=== PATIENT | male | born 1930 | race Caucasian/White ===

== ENCOUNTER 2017-09-30 13:37 | Day surgery (SDC) | payer MEDICARE, OTHER ==
[~2017-09-30 13:37] MED LIST: Ketamine 500 mg/10 ML MDV ONE; Lactated Ringers 1,000 ML IV SCH; Midazolam 1 MG/ML 2 ML SDV ONE; Propofol 200 MG/20 ML SDV ONE; Sodium Chloride 0.9% 10 ML Syringe FLUSH PRN; fentaNYL 100 MCG/2 ML SDV ONE
[2017-09-30] MEDS ORDERED: Midazolam 1 MG/ML 2 ML SDV ONE ×2 (14:42→14:44)
[2017-09-30] MEDS ORDERED: Propofol 200 MG/20 ML SDV ONE ×2 (14:42→14:44)
--- NOTE | 2017-09-30 14:46 | PCM.PN ---
- General Info Date of Service: 09/30/17 - Review of Systems Systems Review Comment:: 86-year-old male referred by Shea Urban for colonoscopy. He has a history of rectal bleeding. He is medically stable to proceed today with no significant recent changes in his health status. His recent history and physical is reviewed. I have discussed the proposed colonoscopy with the patient. Risks such as but not limited to bleeding and GI injury reviewed. He appears to understand and agrees to proceed. - Patient Data Vitals - Most Recent: Last Vital Signs Temp 98.3 F 09/30/17 14:09 Pulse 51 L 09/30/17 14:09 Resp 20 09/30/17 14:09 BP 132/76 09/30/17 14:09 Pulse Ox 95 09/30/17 14:09 Weight - Most Recent: 63.503 kg Med Orders - Current: Current Medications Lactated Ringer's (Ringers, Lactated) 1,000 mls @ 125 mls/hr IV ASDIRECTED INGE Last Admin: 09/30/17 14:20 Dose: 125 mls/hr Sodium Chloride (Saline Flush) 10 ml FLUSH ASDIRECTED PRN PRN Reason: Keep Vein Open Discontinued Medications Fentanyl (Sublimaze) Confirm Administered Dose 100 mcg .ROUTE .STK-MED ONE Stop: 09/30/17 07:39 Ketamine HCl (Ketalar) Confirm Administered Dose 500 mg .ROUTE .STK-MED ONE Stop: 09/30/17 07:39 Midazolam HCl (Versed 1 Mg/Ml) Confirm Administered Dose 2 mg .ROUTE .STK-MED ONE Stop: 09/30/17 07:39 Midazolam HCl (Versed 1 Mg/Ml) Confirm Administered Dose 2 mg .ROUTE .STK-MED ONE Stop: 09/30/17 14:43 Propofol (Diprivan 20 Ml) Confirm Administered Dose 200 mg .ROUTE .STK-MED ONE Stop: 09/30/17 07:40 Propofol (Diprivan 20 Ml) Confirm Administered Dose 400 mg .ROUTE .STK-MED ONE Stop: 09/30/17 14:43 - Problem List Review Problem List Initiated/Reviewed/Updated: Yes - Assessment Assessment:: Hematochezia - Plan Plan:: Colonoscopy
--- NOTE | 2017-09-30 15:24 | PCM.OPNOTE ---
- General Post-Op/Procedure Note Date of Surgery/Procedure: 09/30/17 Operative Procedure(s): Colonoscopy with polyp ablation. Anoscopy Findings: Small cecal polyp Internal hemorrhoids Anal fissure in the posterior midline Pre Op Diagnosis: Hematochezia Post-Op Diagnosis: Colon polyp. Hemorrhoids. Anal fissure Anesthesia Technique: MAC Primary Surgeon: Sixto Anthony Pathology: none Output, Urine Amount: 0 EBL in mLs: 0 Complications: None Condition: Good
[2017-09-30 16:01] VITALS: BP 133/82
--- NOTE | 2017-09-30 16:31 | OR ---
Date of Procedure: 09/30/2017 PREOPERATIVE DIAGNOSIS: Hematochezia. POSTOPERATIVE DIAGNOSES: Colon polyp, internal hemorrhoids, anal fissure. OPERATIONS PERFORMED: Colonoscopy with polyp ablation and anoscopy. INDICATIONS FOR SURGERY: This 86-year-old male has been having symptoms of hematochezia. He is referred for a colonoscopy. FINDINGS: In the patient's colon, single polyp was noted in the cecum. This was 3 to 4 mm in size, sessile in configuration, and benign in appearance. The patient's rectum had multiple [id number] sized internal hemorrhoids without active bleeding. Also, in the rectum, was noted a moderate-sized acute fissure in the posterior midline. DESCRIPTION OF PROCEDURE: The patient was taken to the operating room. He was given intravenous sedation, and with him in the left lateral decubitus position, digital rectal exam was performed showing no rectal masses. The Olympus colonoscope was inserted into the rectum. Retroflexed examination of the rectal canal was performed. The scope was then carefully advanced under direct visualization through the entire length of the colon until the cecum was reached. Cecal acquisition was confirmed by noting the normal internal cecal anatomy including the appendiceal orifice and ileocecal valve. In the cecum, the above-described small polyp was noted. This small polyp was destroyed with the application of cautery using a cautery snare. The scope was then slowly withdrawn sequentially re-examining the colonic segments until the entire colon and rectum had been fully examined. An anoscope was selected and the patient's anus was carefully examined with the anoscope and it was with this that the anal fissure was identified. The scope was removed and the patient then left the operating room in satisfactory condition. ESTIMATED BLOOD LOSS: Zero. COMPLICATIONS: None. PROGNOSIS: Good. SHEILA Anthony MD /[id number]
== END 2017-09-30 16:38 | disposition home or self-care (01) ==
LOC: LL.SDS 13:37
PROVIDERS: ATTEND Surgery
DX: K63.5 Polyp of colon (principal); K64.8 Other hemorrhoids; K60.2 Anal fissure, unspecified; E03.9 Hypothyroidism, unspecified; E78.5 Hyperlipidemia, unspecified; Z96.652 Presence of left artificial knee joint; Z98.890 Other specified postprocedural states; Z79.82 Long term (current) use of aspirin; Z79.899 Other long term (current) drug therapy
CPT/HCPCS: 00812; 45388; J2250; J2704; J7120

== ENCOUNTER 2018-03-02 07:51 | Observation (INO) | payer MEDICARE, OTHER ==
[2018-03-02 08:29] LABS: CHLORIDE,CL 101 mmol/L (98-107); SODIUM,NA 135 mmol/L (136-145)
[2018-03-02] MEDS ORDERED: Acetaminophen/oxyCODONE 325-5 MG Tab PO ONE (09:22)
[2018-03-02] MEDS ORDERED: Ondansetron 4 MG Tab.DIS PO ONE (09:23)
--- NOTE | 2018-03-02 09:25 | EDM.PDOC ---
ED HPI GENERAL MEDICAL PROBLEM - General Chief Complaint: Gastrointestinal Problem Stated Complaint: abdominal pain started at 0400 today Time Seen by Provider: 03/02/18 08:30 Source of Information: Reports: Patient History Limitations: Reports: No Limitations - History of Present Illness INITIAL COMMENTS - FREE TEXT/NARRATIVE: Patient comes in with complaint of abdominal pain that started around 4 hours previously. Cannot describe pain when asked if crampy or sharp in nature. Says it is constant. No accompanying other complaints. Denies fevers/chills/nausea/bowel changes. Denies feeling constipated. Had last bowel movement yesterday afternoon. No HEENT/Resp/CV complaints. No chest discomfort. Pain does not radiate toward chest or back. No changes in urination/hematuria. No neuro complaints. Abdominal Pain Score (Numeric/FACES): 8 - Related Data Allergies Allergy/AdvReac Type Severity Reaction Status Date / Time No Known Allergies Allergy Verified 03/02/18 07:52 Home Meds: Home Meds Aspirin 81 mg PO DAILY 11/22/15 [History] Doxazosin [Cardura] 4 mg PO BEDTIME 11/22/15 [History] Levothyroxine Sodium [Synthroid] 25 mcg PO ACBREAKFAST 09/29/17 [History] Mineral Oil/Petrolat/Phenyleph [Preparation H Oint] 1 applic RC ASDIRECTED PRN 09/29/17 [History] [place]-3/DHA/Epa/Fish Oil [Fish Oil 1,000 mg Softgel] 1 each PO DAILY 09/29/17 [ History] Hydrocortisone [Hydrocortisone 2.5% Crm] 30 gm TOP BID #1 tube 09/30/17 [Rx] Psyllium Husk/Aspartame [Metamucil Fiber Singles Packet] 3.4 gm PO DAILY [History] Past Medical History HEENT History: Reports: Hard of Hearing, Impaired Vision Other HEENT History: wears glasses. has full upper detures, partial lower denture. Bilateral hearing aides Cardiovascular History: Reports: None Respiratory History: Reports: None Gastrointestinal History: Reports: None Genitourinary History: Reports: Prostate Disorder Musculoskeletal History: Reports: Arthritis Neurological History: Reports: None Psychiatric History: Reports: None Endocrine/Metabolic History: Reports: Hypothyroidism Hematologic History: Reports: None Immunologic History: Reports: None Oncologic (Cancer) History: Reports: None Dermatologic History: Reports: None - Past Surgical History Male Surgical History: Reports: Prostate Biopsy Musculoskeletal Surgical History: Reports: Knee Replacement Social & Family History - Tobacco Use Smoking Status *Q: Never Smoker Second Hand Smoke Exposure: No - Caffeine Use Caffeine Use: Reports: Coffee - Recreational Drug Use Recreational Drug Use: No ED ROS GENERAL - Review of Systems Review Of Systems: ROS reveals no pertinent complaints other than HPI. ED EXAM, GI/ABD - Physical Exam Exam: See Below Exam Limited By: No Limitations General Appearance: Alert, WD/WN, Other (appears uncomfortable) Eyes: Bilateral: Normal Appearance, EOMI Ears: Normal External Exam Nose: Normal Inspection Throat/Mouth: Normal Lips, Normal Voice, No Airway Compromise Head: Atraumatic, Normocephalic Neck: Supple, Non-Tender Respiratory/Chest: No Respiratory Distress, Lungs Clear, Normal Breath Sounds, No Accessory Muscle Use, Chest Non-Tender Cardiovascular: Regular Rate, Rhythm, No Murmur GI/Abdominal Exam: Normal Bowel Sounds, No Distention, No Abnormal Bruit, Guarding (mild guarding when palpated RUQ/epigastric area), Tender (RUQ/ epigastric region). No: Rebound (Male) Exam: Deferred Rectal (Males) Exam: Deferred Back Exam: No: CVA Tenderness (L), CVA Tenderness (R) Extremities: Normal Inspection Neurological: Alert, Oriented, Normal Cognition, Other (equal tone/strength) Psychiatric: Normal Affect, Normal Mood Skin Exam: Warm, Intact, Normal Color Course - Vital Signs Last Recorded V/S: Last Vital Signs Temp 36.6 C 03/02/18 07:51 Pulse 53 L 03/02/18 07:51 Resp 16 03/02/18 07:51 BP 155/76 H 03/02/18 07:51 Pulse Ox 93 L 03/02/18 07:51 - Orders/Labs/Meds Orders: Active Orders 24 hr Category Date Time Status Abdomen 2V AP Flat Upright [CR] Stat Exams 03/02/18 08:54 Taken Abdomen Pelvis w Cont [CT] Stat Exams 03/02/18 09:25 Ordered Iopamidol [Isovue-300 (61%)] Med 03/02/18 10:30 Once 100 ml IVPUSH ONETIME ONE Sodium Chloride 0.9% [Saline Flush] Med 03/02/18 09:42 Active 10 ml FLUSH ASDIRECTED PRN Saline Lock Insert [OM.PC] Routine Oth 03/02/18 09:42 Ordered Medication Orders Iopamidol (Isovue-300 (61%)) 100 ml IVPUSH ONETIME ONE Stop: 03/02/18 10:31 Sodium Chloride (Saline Flush) 10 ml FLUSH ASDIRECTED PRN PRN Reason: Keep Vein Open Labs: Laboratory Tests 03/02/18 03/02/18 03/02/18 Range/Units 07:59 08:05 08:05 WBC 5.3 (4.0-10.2) K/uL RBC 4.68 (4.33-5.41) M/uL Hgb 15.1 (13.1-16.8) g/dL Hct 42.3 (39.0-49.0) % MCV 90.4 (84.0-98.0) fL MCH 32.3 (28.2-33.3) pg MCHC 35.7 (31.7-36.0) g/dL RDW 12.4 (11.2-14.1) % Plt Count 129 L (150-350) K/uL Neut % (Auto) 69.9 (45.0-80.0) % Lymph % (Auto) 19.1 (10.0-50.0) % [place] % (Auto) 9.5 (2.0-14.0) % Eos % (Auto) 1.1 (0.0-5.0) % Baso % (Auto) 0.4 (0.0-2.0) % Neut # (Auto) 3.70 (1.40-7.00) K/uL Lymph # (Auto) 1.01 (0.50-3.50) K/uL [place] # (Auto) 0.50 (0.00-1.00) K/uL Eos # (Auto) 0.06 (0.00-0.50) K/uL Baso # (Auto) 0.02 (0.00-0.20) K/uL Sodium 135 L (136-145) mmol/L Potassium 4.1 (3.5-5.1) mmol/L Chloride 101 (98-107) mmol/L Carbon Dioxide 27.3 (21.0-32.0) mmol/L BUN 13 (7-18) mg/dL Creatinine 0.98 (0.51-1.17) mg/dL Est Cr Clr Drug Dosing 45.32 mL/min Estimated GFR (MDRD) > 60 mL/min Glucose 117 H (74-106) mg/dL Calcium 8.9 (8.5-10.1) mg/dL Total Bilirubin 0.8 (0.2-1.0) mg/dL AST 27 (15-37) U/L ALT 30 (12-78) U/L Alkaline Phosphatase 78 (46-116) IU/L Total Protein 7.2 (6.4-8.2) g/dL Albumin 3.5 (3.4-5.0) g/dL Specimen Type Urinvoid Urine Color Yellow Urine Appearance Clear Urine pH 7.0 (5.0-9.0) Ur Specific [place] 1.015 (1.005-1.030) Urine Protein Negative (NEGATIVE) mg/dL Urine Glucose (UA) Negative (NEGATIVE) mg/dL Urine Ketones Negative (NEGATIVE) mg/dL Urine Occult Blood Negative (NEGATIVE) Urine Nitrite Negative (NEGATIVE) Urine Bilirubin Negative (NEGATIVE) Urine Urobilinogen 0.2 (0.2-1.0) E.U./dL Ur Leukocyte Esterase Negative (NEGATIVE) Urine RBC 0-5 /HPF Urine WBC 0-5 /HPF Ur Epithelial Cells Rare /LPF Urine Bacteria Rare (NONE TO FEW) /HPF Meds: Medications Generic Name Dose Route Start Last Admin Trade Name Freq PRN Reason Stop Dose Admin Iopamidol 100 ml 03/02/18 10:30 Isovue-300 (61%) IVPUSH 03/02/18 10:31 ONETIME ONE Sodium Chloride 10 ml 03/02/18 09:42 Saline Flush FLUSH ASDIRECTED PRN Keep Vein Open Discontinued Medications Generic Name Dose Route Start Last Admin Trade Name Freq PRN Reason Stop Dose Admin Ondansetron HCl 4 mg 03/02/18 09:23 03/02/18 09:28 Zofran Odt PO 03/02/18 09:24 4 mg ONETIME ONE Administration Oxycodone/Acetaminophen 1 tab 03/02/18 09:22 03/02/18 09:30 Percocet 325-5 Mg PO 03/02/18 09:23 1 tab ONETIME ONE Administration - Re-Assessments/Exams Free Text/Narrative Re-Assessment/Exam: 03/02/18 09:32 Labs unremarkable overall. Abdominal film shows increased stool RUQ. Given mild guarding/patient rating pain at a 9, abdominal CT ordered. Unable to schedule patient for US study this morning. 03/02/18 09:57 Patient had emesis while trying to drink contrast. Plan at this time is to admit to floor on observation. Will reattempt to give PO contrast. Consider scheduling RUQ US later today to allow for more thorough evaluation. Departure - Departure Time of Disposition: 09:59 Disposition: Refer to Observation Condition: Good Clinical Impression: Abdominal pain - Discharge Information *PRESCRIPTION DRUG MONITORING PROGRAM REVIEWED*: Not Applicable *COPY OF PRESCRIPTION DRUG MONITORING REPORT IN PATIENT GURWINDER: Not Applicable Referrals: Lizzeth Alvarez MD [Primary Care Provider] - Forms: ED Department Discharge - Problem List & Annotations (1) Abdominal pain SNOMED Code(s): 96024848 Code(s): R10.9 - UNSPECIFIED ABDOMINAL PAIN Status: Acute Priority: High Onset Date: 03/02/18 Annotation/Comment:: RUQ present since about 4am this morning. Denies feeling constipated however there was a larger collection of stool noted in this area on plain xray. No fevers. Normal WBC and LFTs. Unable to obtain US study until midday. Will also continue to see if patient can drink contrast in order to have CT study of abdomen/pelvis. - Problem List Review Problem List Initiated/Reviewed/Updated: Yes - My Orders Last 24 Hours: My Active Orders 03/02/18 08:54 Abdomen 2V AP Flat Upright [CR] Stat 03/02/18 09:25 Abdomen Pelvis w Cont [CT] Stat 03/02/18 09:42 Sodium Chloride 0.9% [Saline Flush] 10 ml FLUSH ASDIRECTED PRN Saline Lock Insert [OM.PC] Routine 03/02/18 10:30 Iopamidol [Isovue-300 (61%)] 100 ml IVPUSH ONETIME ONE - Assessment/Plan Admission H&P: Please use this note as an admission H&P Last 24 Hours: My Active Orders 03/02/18 08:54 Abdomen 2V AP Flat Upright [CR] Stat 03/02/18 09:25 Abdomen Pelvis w Cont [CT] Stat 03/02/18 09:42 Sodium Chloride 0.9% [Saline Flush] 10 ml FLUSH ASDIRECTED PRN Saline Lock Insert [OM.PC] Routine 03/02/18 10:30 Iopamidol [Isovue-300 (61%)] 100 ml IVPUSH ONETIME ONE Assessment:: RUQ abdominal pain. May be due to constipation. Differential includes gallbladder disease, early VGE, diverticular disease. Plan: As above.
[2018-03-02] MEDS ORDERED: Sodium Chloride 0.9% 10 ML Syringe FLUSH PRN ×2 (09:42→10:27)
[2018-03-02] MEDS ORDERED: Iopamidol 612 MG/ML 100 ML Bottle IVPUSH ONE (10:30)
[2018-03-02] MEDS ORDERED: Ondansetron 4 MG/2 ML SDV IVPUSH PRN (11:00)
[2018-03-02] MEDS ORDERED: traMADol 50 MG Tab PO PRN (11:00)
[2018-03-02] MEDS ORDERED: Mineral Oil/Petrolatum/Phenylephrine/Shark Liver Oil Oint 57 GM Tube RECTAL PRN (11:01)
[2018-03-02] MEDS ORDERED: Acetaminophen 325 MG Tab PO PRN (16:00)
[2018-03-02 16:34] VITALS: BP 132/58
--- NOTE | 2018-03-02 18:22 | PCM.DCSUM1 ---
Discharge Summary - Hospital Course Brief History: Patient admitted observation due to RUQ pain complaint. This started this morning around 4am. Patient was planning to see primary provider today and was fasting for routine labs. Diagnosis: Stroke: No - Discharge Data Discharge Date: 03/02/18 Discharge Disposition: Home, Self-Care 01 Condition: Good - Discharge Diagnosis/Problem(s) (1) Abdominal pain SNOMED Code(s): 32103656 ICD Code: R10.9 - UNSPECIFIED ABDOMINAL PAIN Status: Acute Priority: High Current Visit: No Onset Date: 03/02/18 Problem Details: Improved gradually throughout the day and currently pain-free. Able to tolerate dinner tray without issue. Negative RUQ US study. CT of abdomen/pelvis showed small area of inflammed ileum per Radiology. Differential included viral etiology. WBC normal. No fevers. No further emesis once admitted to floor. No bowel changes. UA and Chemistry unremarkable. Has history of intermittent chronic constipation. (2) Rectal nodule SNOMED Code(s): 897917449, 038062355 ICD Code: K62.89 - OTHER SPECIFIED DISEASES OF ANUS AND RECTUM Status: Acute Priority: Medium Current Visit: Yes Problem Details: Patient shared that he has noted some dark blood on TP as well as on stools intermittently over the past month. Feels this may have been associated with passing hard constipated stools. Digital rectal exam performed and nodule noted on left side of center posteriorly. Non-tender. Review of records shows that last colonscopy was performed September and multiple small/medium internal hemorrhoids were noted at that time. This may be a thrombosed hemorrhoid or could represent prostate nodule. Will have patient follow up this week with primary provider for further evaluation and referral as needed. - Patient Summary/Data Complications: none Hospital Course: Pain had improved from a 9 to a 4 by the time patient was moved from the ER to a room. Pain continued to improve over the afternoon and finally became a "0". Patient kept NPO except for water until the afternoon. Once CT and US results were available diet was advanced as tolerated. He was able to eat a regular meal at dinner time. Pain did not return. Vital signs remained stable. No new symptoms noted. Suspect mild viral gastroenteritis given the small area of inflamed ileum noted on CT. However cannot rule out other potential causes. Patient did share that he has had some darker blood mixed in with stools at times (see above). Negative for occult blood tonight. Small nodule noted on rectal exam (see above). Uncertain if it represents a small thrombosed hemorrhoid or new prostate nodule. Patient plans on [place] [facility] [place] days in regards to this. He may need referral to specialty clinic for further evaluation. - Patient Instructions Diet: Usual Diet as Tolerated Activity: As Tolerated Driving: Do Not Drive Showering/Bathing: May Shower Notify Provider of: Increased Pain Other/Special Instructions: [place] up [place] [facility] [place] for recheck and in regards to the rectal bleeding. You may try taking a dose of Magnesium Citrate if you continue to feel constipated and do not have a stool tomorrow. - Discharge Plan *PRESCRIPTION DRUG MONITORING PROGRAM REVIEWED*: Not Applicable *COPY OF PRESCRIPTION DRUG MONITORING REPORT IN PATIENT GURWINDER: Not Applicable Home Medications: Home Meds Aspirin 81 mg PO DAILY 11/22/15 [History] Doxazosin [Cardura] 4 mg PO BEDTIME 11/22/15 [History] Levothyroxine Sodium [Synthroid] 25 mcg PO ACBREAKFAST 09/29/17 [History] Mineral Oil/Petrolat/Phenyleph [Preparation H Oint] 1 applic RC ASDIRECTED PRN 09/29/17 [History] [place]-3/DHA/Epa/Fish Oil [Fish Oil 1,000 mg Softgel] 1 each PO DAILY 09/29/17 [ History] Hydrocortisone [Hydrocortisone 2.5% Crm] 30 gm TOP BID #1 tube 09/30/17 [Rx] Psyllium Husk/Aspartame [Metamucil Fiber Singles Packet] 3.4 gm PO DAILY [History] Forms: ED Department Discharge Referrals: Sheets-Lizzeth Montemayor MD [Primary Care Provider] - - Discharge Summary/Plan Comment DC Time >30 min.: No - General Info Date of Service: 03/02/18 Admission Dx/Problem (Free Text: RUQ pain Subjective Update: Symptoms have resolved. Functional Status: Reports: Pain Controlled, Tolerating Diet, Ambulating, Urinating. Denies: New Symptoms - Review of Systems General: Reports: No Symptoms HEENT: Reports: Glasses Pulmonary: Reports: No Symptoms Cardiovascular: Reports: No Symptoms Gastrointestinal: Reports: No Symptoms. Denies: Abdominal Pain, Diarrhea, Difficulty Swallowing Genitourinary: Reports: No Symptoms Musculoskeletal: Reports: No Symptoms Skin: Reports: No Symptoms Neurological: Reports: No Symptoms Psychiatric: Reports: No Symptoms - Patient Data Vitals - Most Recent: Last Vital Signs Temp 35.7 C 03/02/18 16:00 Pulse 57 L 03/02/18 16:00 Resp 16 03/02/18 16:00 BP 132/58 L 03/02/18 16:00 Pulse Ox 95 03/02/18 16:00 Weight - Most Recent: 64.229 kg I&O - Last 24 hours: Intake & Output 03/02/18 03/02/18 03/02/18 06:59 14:59 22:59 Intake Total 240 Balance 240 Lab Results - Last 24 hrs: Laboratory Results - last 24 hr 03/02/18 03/02/18 03/02/18 Range/Units 07:59 08:05 08:05 WBC 5.3 (4.0-10.2) K/uL RBC 4.68 (4.33-5.41) M/uL Hgb 15.1 (13.1-16.8) g/dL Hct 42.3 (39.0-49.0) % MCV 90.4 (84.0-98.0) fL MCH 32.3 (28.2-33.3) pg MCHC 35.7 (31.7-36.0) g/dL RDW 12.4 (11.2-14.1) % Plt Count 129 L (150-350) K/uL Neut % (Auto) 69.9 (45.0-80.0) % Lymph % (Auto) 19.1 (10.0-50.0) % [place] % (Auto) 9.5 (2.0-14.0) % Eos % (Auto) 1.1 (0.0-5.0) % Baso % (Auto) 0.4 (0.0-2.0) % Neut # (Auto) 3.70 (1.40-7.00) K/uL Lymph # (Auto) 1.01 (0.50-3.50) K/uL [place] # (Auto) 0.50 (0.00-1.00) K/uL Eos # (Auto) 0.06 (0.00-0.50) K/uL Baso # (Auto) 0.02 (0.00-0.20) K/uL Sodium 135 L (136-145) mmol/L Potassium 4.1 (3.5-5.1) mmol/L Chloride 101 (98-107) mmol/L Carbon Dioxide 27.3 (21.0-32.0) mmol/L BUN 13 (7-18) mg/dL Creatinine 0.98 (0.51-1.17) mg/dL Est Cr Clr Drug Dosing 45.32 mL/min Estimated GFR (MDRD) > 60 mL/min Glucose 117 H (74-106) mg/dL Calcium 8.9 (8.5-10.1) mg/dL Total Bilirubin 0.8 (0.2-1.0) mg/dL AST 27 (15-37) U/L ALT 30 (12-78) U/L Alkaline Phosphatase 78 (46-116) IU/L Total Protein 7.2 (6.4-8.2) g/dL Albumin 3.5 (3.4-5.0) g/dL Specimen Type Urinvoid Urine Color Yellow Urine Appearance Clear Urine pH 7.0 (5.0-9.0) Ur Specific [place] 1.015 (1.005-1.030) Urine Protein Negative (NEGATIVE) mg/dL Urine Glucose (UA) Negative (NEGATIVE) mg/dL Urine Ketones Negative (NEGATIVE) mg/dL Urine Occult Blood Negative (NEGATIVE) Urine Nitrite Negative (NEGATIVE) Urine Bilirubin Negative (NEGATIVE) Urine Urobilinogen 0.2 (0.2-1.0) E.U./dL Ur Leukocyte Esterase Negative (NEGATIVE) Urine RBC 0-5 /HPF Urine WBC 0-5 /HPF Ur Epithelial Cells Rare /LPF Urine Bacteria Rare (NONE TO FEW) /HPF Med Orders - Current: Current Medications Acetaminophen (Tylenol) 650 mg PO Q6H PRN PRN Reason: Pain Aspirin (Aspirin) 81 mg PO DAILY INGE Doxazosin Mesylate (Cardura) 4 mg PO BEDTIME INGE Levothyroxine Sodium (Levothyroxine) 25 mcg PO ACBREAKFAST INGE Ondansetron HCl (Zofran) 4 mg IVPUSH Q6H PRN PRN Reason: Nausea/Vomiting Phenyleph/Shark Oil/Min Oil/Petrol (Preparation H Oint) 1 gm RECTAL ASDIRECTED PRN PRN Reason: Hemorrhoids Sodium Chloride (Saline Flush) 10 ml FLUSH ASDIRECTED PRN PRN Reason: Keep Vein Open Sodium Chloride (Saline Flush) 10 ml FLUSH ASDIRECTED PRN PRN Reason: Keep Vein Open Tramadol HCl (Ultram) 50 mg PO Q4H PRN PRN Reason: Pain Discontinued Medications Iopamidol (Isovue-300 (61%)) 100 ml IVPUSH ONETIME ONE Stop: 03/02/18 10:31 Last Admin: 03/02/18 11:56 Dose: 100 ml Ondansetron HCl (Zofran Odt) 4 mg PO ONETIME ONE Stop: 03/02/18 09:24 Last Admin: 03/02/18 09:28 Dose: 4 mg Oxycodone/Acetaminophen (Percocet 325-5 Mg) 1 tab PO ONETIME ONE Stop: 03/02/18 09:23 Last Admin: 03/02/18 09:30 Dose: 1 tab - Exam General: Reports: Alert, Oriented, Cooperative, No Acute Distress HEENT: Reports: Pupils Equal, Pupils Reactive, EOMI, Mucous Membr. Moist/[place] Neck: Reports: Supple Lungs: Reports: Clear to Auscultation, Normal Respiratory Effort Cardiovascular: Reports: Regular Rate, Regular Rhythm GI/Abdominal Exam: Normal Bowel Sounds, Soft, Non-Tender, No Distention, No Mass (Male) Exam: Deferred Rectal (Males) Exam: BPH, Heme - Stool, Prostate Nodule (vs thrombosed internal hemorrhoid). No: Tenderness Extremities: Normal Inspection Skin: Reports: Warm, Dry, Intact Neurological: Reports: No New Focal Deficit Psy/Mental Status: Reports: Alert, Normal Affect, Normal Mood
[2018-03-02] MEDS ORDERED: Doxazosin 4 MG Tab PO SCH (20:00)
[2018-03-03] MEDS ORDERED: Levothyroxine 25 MCG Tab PO SCH (07:30)
[2018-03-03] MEDS ORDERED: Aspirin 81 MG Tab.Chew PO SCH (08:00)
== END 2018-03-02 19:02 | disposition home or self-care (01) ==
LOC: LL.ED 07:51 → LL.MS 10:33
PROVIDERS: ADMIT Emergency Medicine; ATTEND Family Medicine
DX: R10.11 Right upper quadrant pain (principal); K62.89 Other specified diseases of anus and rectum
CPT/HCPCS: 36000; 36415; 74019; 74177; 76705; 80053; 81001; 82272; 85025; 99285; A9270; G0378; Q9967

== ENCOUNTER 2018-07-30 10:57 | Emergency (ER) | payer MEDICARE, OTHER ==
[2018-07-30 11:38] VITALS: BP 157/59
--- NOTE | 2018-07-30 12:01 | EDM.PDOC ---
ED HPI GENERAL MEDICAL PROBLEM - General Chief Complaint: Genitourinary Problem Stated Complaint: Urinary retention/urge Time Seen by Provider: 07/30/18 11:08 Source of Information: Reports: Patient, Family History Limitations: Reports: No Limitations - History of Present Illness INITIAL COMMENTS - FREE TEXT/NARRATIVE: Patient complains of urinary retention after taking Maki cath out yesterday post-procedure. He had the Maki in place for several days after undergoing scope in [place] by Urology. 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 No fevers/chills. Feels like his bladder if full. Can only void small amount with straining. Denies any other acute complaints. Lower Abdominal Pain Score (Numeric/FACES): 7 - Related Data Allergies Allergy/AdvReac Type Severity Reaction Status Date / Time No Known Allergies Allergy Verified 07/30/18 10:58 Home Meds: Home Meds Doxazosin [Cardura] 4 mg PO BEDTIME 11/22/15 [History] Levothyroxine Sodium [Synthroid] 25 mcg PO ACBREAKFAST 09/29/17 [History] Mineral Oil/Petrolat/Phenyleph [Preparation H Oint] 1 applic RC ASDIRECTED PRN 09/29/17 [History] [place]-3/DHA/Epa/Fish Oil [Fish Oil 1,000 mg Softgel] 1 each PO DAILY 09/29/17 [ History] Dutasteride [Avodart] 0.5 mg PO DAILY #30 cap 06/01/18 [Rx] Past Medical History HEENT History: Reports: Hard of Hearing Other HEENT History: wears glasses. has full upper detures, partial lower denture. Bilateral hearing aides Cardiovascular History: Reports: High Cholesterol, Other (See Below) Other Cardiovascular History: First degree AV block. 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 Blood in stool. Anal fissure Genitourinary History: Reports: BPH, Other (See Below) Other Genitourinary History: Gross hematuria. Small growth in urethra removed Jul 2018 Musculoskeletal History: Reports: Arthritis, Osteoporosis Neurological History: Reports: None Psychiatric History: Reports: None Endocrine/Metabolic History: Reports: Hypothyroidism, Other (See Below) Other Endocrine/Metabolic History: Hyperglycemia Hematologic History: Reports: None Immunologic History: Reports: None Oncologic (Cancer) History: Reports: None Dermatologic History: Reports: Other (See Below) Other Dermatologic History: Other seborrheic keratosis - Past Surgical History HEENT Surgical History: Reports: Other (See Below) Other HEENT Surgeries/Procedures: 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 GI Surgical History: Reports: Colonoscopy, Hernia Repair/Other Male Surgical History: Reports: Prostate Biopsy Musculoskeletal Surgical History: Reports: Knee Replacement Social & Family History - Tobacco Use Smoking Status *Q: Never Smoker Second Hand Smoke Exposure: No - Caffeine Use Caffeine Use: Reports: Coffee - Recreational Drug Use Recreational Drug Use: No ED ROS GENERAL - Review of Systems Review Of Systems: See Below Constitutional: Reports: No Symptoms HEENT: Reports: No Symptoms, Glasses Respiratory: Reports: No Symptoms Cardiovascular: Reports: No Symptoms GI/Abdominal: Reports: No Symptoms. Denies: Abdominal Pain, Constipation, Diarrhea, Nausea, Vomiting : Reports: Other (see HPI) Musculoskeletal: Reports: No Symptoms (no acute changes from baseline) Skin: Reports: No Symptoms Neurological: Reports: No Symptoms Psychiatric: Reports: No Symptoms ED EXAM, RENAL/ - Physical Exam Exam: See Below Exam Limited By: No Limitations General Appearance: Alert, WD/WN, No Apparent Distress Eye Exam: Bilateral Eye: EOMI, PERRL Nose: No: Nasal Drainage Throat/Mouth: Normal Voice, No Airway Compromise Head: Atraumatic, Normocephalic Neck: Supple Respiratory/Chest: No Respiratory Distress, No Accessory Muscle Use, Chest Non- Tender, Other (faint rales at bases) Cardiovascular: Regular Rate, Rhythm, No Murmur GI/Abdominal: Normal Bowel Sounds, Soft, Non-Tender (Male) Exam: Other (normal external male genitalia, no swelling noted) Rectal (Males) Exam: Deferred Extremities: Normal Capillary Refill Neurological: Alert, Normal Cognition Psychiatric: Normal Affect, Normal Mood Skin Exam: Warm, Dry Course - Vital Signs Last Recorded V/S: Last Vital Signs Temp 36.7 C 07/30/18 11:37 Pulse 60 07/30/18 11:37 Resp 18 07/30/18 11:37 BP 157/59 H 07/30/18 11:37 Pulse Ox 97 07/30/18 11:37 - Orders/Labs/Meds Labs: Laboratory Tests 07/30/18 07/30/18 Range/Units 11:07 11:20 Specimen Type Cancelled Urincath Urine Color Cancelled [place] Urine Appearance Cancelled Slightly cloudy Urine pH Cancelled 6.5 Ur Specific [place] Cancelled 1.010 Urine Protein Cancelled Negative Urine Glucose (UA) Cancelled Negative Urine Ketones Cancelled Negative Urine Occult Blood Cancelled Large H Urine Nitrite Cancelled Negative Urine Bilirubin Cancelled Negative Urine Urobilinogen Cancelled 0.2 Ur Leukocyte Esterase Cancelled Trace H Urine RBC Cancelled 20-30 H Urine WBC Cancelled 0-5 Ur Epithelial Cells Cancelled Occasional Other Crystals Cancelled Amorphous Sediment Cancelled Urine Bacteria Cancelled Occasional Hyaline Casts Cancelled Granular Casts Cancelled Urine Mucus Cancelled Urine Other Cancelled Urine Yeast Cancelled Urinalysis Comment Cancelled - Re-Assessments/Exams Free Text/Narrative Re-Assessment/Exam: 07/30/18 12:08 Bladder scan showed approximately 1liter of retained urine. This was drained after placement of new Maki. UA showed some RBCs, but no evidence of UTI. Plan at this time is to have the patient keep the catheter in place for two days. To call patient's Urology office early Wednesday to update them. They are to follow Urology guidance as to when to again attempt to remove the Maki. Suspect that patient will nee to keep this one in place 2-3 days. Precautions reviewed. To follow up here in [place] as needed. Departure - Departure Time of Disposition: 11:58 Disposition: Home, Self-Care 01 Condition: Good Clinical Impression: Postoperative urinary retention - Discharge Information *PRESCRIPTION DRUG MONITORING PROGRAM REVIEWED*: Not Applicable *COPY OF PRESCRIPTION DRUG MONITORING REPORT IN PATIENT GURWINDER: Not Applicable Instructions: Acute Urinary Retention, Male, [id number] Referrals: Shea Urban PA [Primary Care Provider] - Forms: ED Department Discharge Additional Instructions: We will have you keep the indwelling catheter in place for the next 48 hours. Call the Urology department in [place] Wednesday morning and inform them of the need to replace the Maki. Ask them how long they wish for you to keep this one in place. They may have you take it out Wednesday or Wednesday most likely. If you have any problems or concerns feel free to return to [place] for a recheck.
== END 2018-07-30 12:25 | disposition home or self-care (01) ==
LOC: LL.ED 10:57
DX: N99.89 Other postprocedural complications and disorders of genitourinary system (principal); R33.9 Retention of urine, unspecified; E03.9 Hypothyroidism, unspecified; Z79.899 Other long term (current) drug therapy
CPT/HCPCS: 51702; 51798; 81001; 99283